=== PATIENT | female | born 1960 | race Caucasian/White ===

== ENCOUNTER → 2019-11-27 | Emergency (ER) | payer MEDICAID ==
[~2019-11-27] VITALS: Ht 170.2 cm; Wt 79.4 kg
[2019-11-27 18:15] VITALS: BP 114/78
== END | disposition home or self-care (01) ==
LOC: ER 17:37
DX: L03.116 Cellulitis of left lower limb (principal); J44.9 Chronic obstructive pulmonary disease, unspecified; I10 Essential (primary) hypertension; E78.5 Hyperlipidemia, unspecified; F17.210 Nicotine dependence, cigarettes, uncomplicated
CPT/HCPCS: 36415; 85379; 93971

== ENCOUNTER 2020-05-22 16:38 | Emergency (ER) | payer MEDICAID ==
[~2020-05-22] VITALS: Ht 167.6 cm; Wt 71.7 kg
[2020-05-22] MEDS ORDERED: HYDROcodone-ACET 10/325MG TAB PO ONE (17:45)
[2020-05-22 20:28] LABS: Basophils # (auto) 0 10 ^3/uL (0-0.2); Basophils % (auto) 0.4 % (0.0-2.0); Eosinophils # (auto) 0.2 10 ^3/uL (0-0.8); Eosinophils % (auto) 2.1 % (0.0-7.0); Hematocrit 38.7 % (36.0-46.0); Hemoglobin 12.3 g/dL (12.2-16.2); Lymphocytes # (auto) 2.7 10 ^3/uL (0.4-5.4); Mean Corpuscular Hemoglobin 26.6 pg (28.0-32.0); Mean Corpuscular Hgb Conc. 31.7 g/dL (32.0-36.0); Mean Corpuscular Volume 83.8 fL (80.0-100.0); Monocytes # (auto) 0.8 10 ^3/uL (0-1.3); Monocytes % (auto) 7.7 % (0.0-12.0); Neutrophils # (auto) 7.1 10 ^3/uL (1.6-8.6); Neutrophils % (auto) 64.8 % (37.0-80.0); Nucleated Red Blood Cells % 0.1 %; Platelet Count (auto) 368 10^3/uL (140-450); Red Blood Cells 4.62 10^6/uL (4.0-5.20); Red Cell Distribution Width 15.9 % (11.8-14.3); White Blood Cell 10.9 10^3/uL (4.4-10.8)
[2020-05-22 20:43] LABS: Albumin 3.1 g/dL (3.4-5.0); Calcium 9.1 mg/dL (8.5-10.1); INR 0.96 (0.9-1.15); Potassium 4.2 mmol/L (3.5-5.1)
[2020-05-22 20:47] LABS: BUN/Creatinine Ratio 14.2; Bilirubin, Total 0.2 mg/dL (0.2-1.0); Total Protein 7.6 g/dL (6.4-8.2)
[2020-05-22] MEDS ORDERED: cefTRIAXone SOD 1,000 MG VL IM ONE (22:00)
[2020-05-22] MEDS ORDERED: LIDOCAINE 1% HCL (LOCAL ANESTH.) INJ 20ML MDV ONE (22:16)
[2020-05-22 22:21] VITALS: BP 132/78
== END 2020-05-22 22:39 | disposition home or self-care (01) ==
LOC: ER 16:38
DX: L03.116 Cellulitis of left lower limb (principal); L03.113 Cellulitis of right upper limb; F12.10 Cannabis abuse, uncomplicated; N18.6 End stage renal disease; K21.9 Gastro-esophageal reflux disease without esophagitis; E78.5 Hyperlipidemia, unspecified; F17.210 Nicotine dependence, cigarettes, uncomplicated
CPT/HCPCS: 36415; 73200; 80053; 83605; 83880; 84443; 84484; 85025; 85610; 87040; 93971; 96372; 99285; J0696; J2001

== ENCOUNTER 2021-05-01 06:41 | Inpatient (IN) | payer MEDICAID ==
[~2021-05-01] VITALS: Ht 165.1 cm; Wt 80.0 kg
[2021-05-01] MEDS ORDERED: SODIUM CHLORIDE 0.9% 1,000 ML IV ONE (07:00)
[2021-05-01 07:27] LABS: Eosinophils # (auto) 0 10 ^3/uL (0-0.8); Monocytes # (auto) 0.3 10 ^3/uL (0-1.3)
[2021-05-01] MEDS ORDERED: LABETALOL HCL 5 MG/ML 4ML SYRINGE IV ONE (07:30)
[2021-05-01 07:31] LABS: Basophils # (auto) 0.1 10 ^3/uL (0-0.2); Basophils % (auto) 0.6 % (0.0-2.0); Hematocrit 40.6 % (36.0-46.0); Hemoglobin 13.2 g/dL (12.2-16.2); Lymphocytes # (auto) 0.8 10 ^3/uL (0.4-5.4); Lymphocytes % (auto) 7.4 % (10.0-50.0); Mean Corpuscular Hemoglobin 25.9 pg (28.0-32.0); Mean Corpuscular Hgb Conc. 32.5 g/dL (32.0-36.0); Mean Corpuscular Volume 79.6 fL (80.0-100.0); Monocytes % (auto) 3.2 % (0.0-12.0); Neutrophils # (auto) 9.1 10 ^3/uL (1.6-8.6); Neutrophils % (auto) 88.8 % (37.0-80.0); Red Cell Distribution Width 15.9 % (11.8-14.3); White Blood Cell 10.2 10^3/uL (4.4-10.8)
[2021-05-01 07:36] LABS: Chloride 106 mmol/L (98-107); Potassium 3.3 mmol/L (3.5-5.1); Sodium 140 mmol/L (136-145)
[2021-05-01 07:47] LABS: Albumin 3.7 g/dL (3.4-5.0); Anion Gap 11 (5-15); Aspartate Aminotransferase 31 U/L (15-37); Blood Urea Nitrogen 14 mg/dL (7-18); Calcium 9.6 mg/dL (8.5-10.1); Carbon Dioxide 23 mmol/L (21-32); Glucose 143 mg/dL (74-106)
[2021-05-01 08:16] LABS: Alanine Aminotransferase 38 U/L (13-56); Alkaline Phosphatase 148 U/L (45-117); BUN/Creatinine Ratio 15.4; Bilirubin, Total 0.6 mg/dL (0.2-1.0); GFR African American 81 mL/min; GFR Non-African American 67 mL/min; Total Protein 8.4 g/dL (6.4-8.2)
[2021-05-01 08:35] LABS: Urine Bacteria NONE SEEN /hpf (None Seen); Urine Blood Negative /uL (Negative); Urine Specific Gravity 1.014 (1.001-1.035); Urine WBC <1 /hpf (0 - 5)
[2021-05-01] MEDS ORDERED: hydrALAZINE HCL 20 MG/ML VL IV PRN (09:15)
[2021-05-01] MEDS ORDERED: MORPHINE SULFATE INJECTION 2 MG/ML SYRG IV PRN ×3 (09:15→13:30)
[2021-05-01] MEDS ORDERED: NITROGLYCERIN 0.4 MG SL TAB SL PRN ×2 (09:15→13:30)
[2021-05-01] MEDS ORDERED: LACTATED RINGER'S 1,000 ML IV ONE (09:30)
[2021-05-01] MEDS ORDERED: ONDANSETRON HCL 4 MG/2 ML VIAL IV ONE (10:30)
[2021-05-01] MEDS ORDERED: MORPHINE SULFATE INJECTION 2 MG/ML SYRG IV ONE (10:30)
[2021-05-01] MEDS: LORazepam 2MG/ML-1ML VIAL IV ONE ×2 (10:51→11:56)
[2021-05-01] MEDS ORDERED: POTASSIUM CHL 20 Meq TABLET PO ONE (13:15)
[2021-05-01] MEDS ORDERED: CLINDAMYCIN 600MG IV 50 ML IV ONE (13:30)
[2021-05-01] MEDS ORDERED: cefTRIAXone 1GM/50ML D5W 50 ML IV ONE (13:30)
[2021-05-01] MEDS ORDERED: ENOXAPARIN SOD 40 MG/0.4 ML SYRINGE SC ONE (13:30)
[2021-05-01] MEDS ORDERED: LORazepam 0.5 MG TAB PO PRN (13:30)
[2021-05-01] MEDS ORDERED: ALUM & MAG HYDROX-SIMETH LIQ(MAALOX) 30 ML PO PRN (13:30)
[2021-05-01] MEDS ORDERED: ONDANSETRON HCL 4 MG/2 ML VIAL IV PRN (13:30)
[2021-05-01] MEDS ORDERED: DOCUSATE SOD 100 MG CAP PO PRN (13:30)
[2021-05-01] MEDS ORDERED: CALCIUM W/VIT D (600MG/400IU) TAB PO ONE (13:30)
[2021-05-01] MEDS ORDERED: LORazepam 2MG/ML-1ML VIAL IV PRN (13:30)
[2021-05-01] MEDS ORDERED: HYDROcodone-ACET 5/325MG TAB PO PRN (13:30)
[2021-05-01] MEDS ORDERED: ACETAMINOPHEN 325 MG TAB PO PRN (13:30)
[2021-05-01] MEDS ORDERED: NIFEdipine ER 30 MG TAB PO ONE (13:30)
[2021-05-01] MEDS ORDERED: BENAZEPRIL HCL 10 MG TAB PO ONE (13:30)
[2021-05-01] MEDS ORDERED: PERCOT PO (13:47)
[2021-05-01] MEDS ORDERED: BACL10TA PO (13:47)
[2021-05-01] MEDS ORDERED: BUPR200T2 PO (13:47)
[2021-05-01] MEDS ORDERED: ATOR20TA50 PO (13:47)
[2021-05-01] MEDS ORDERED: GABA300C10 PO (13:47)
[2021-05-01] MEDS ORDERED: HYDR-4902 PO (13:47)
[2021-05-01 14:01] LABS: Alcohol, Urine < 3.0 mg/dL (0-10); Amphetamine Screen, Urine NEGATIVE (NEGATIVE); Benzodiazephine Screen, Urine NEGATIVE (NEGATIVE); Cannabinoid Screen, Urine POSITIVE (NEGATIVE); Opiate Scree,Urine NEGATIVE (NEGATIVE)
[2021-05-01 14:09] LABS: Barbiturate Scree,Urine NEGATIVE (NEGATIVE); Cocaine Screen, Urine NEGATIVE (NEGATIVE); Phencyclidine Screen, Urine NEGATIVE (NEGATIVE)
[2021-05-01 14:46] LABS: INR 1.05 (0.9-1.15); Partial Thromboplastin Time 28.3 sec (23.6-33.0)
[2021-05-01] MEDS: SODIUM CHLOR 0.9% PF (SALINE LOCK) 10ML VIAL/SYR IV SCH ×2 (14:57→21:12)
[2021-05-01 15:31] LABS: Magnesium 2.1 mg/dL (1.6-2.6); Phosphorus 3.8 mg/dL (2.5-4.90)
[2021-05-01] MEDS: CALCIUM W/VIT D (600MG/400IU) TAB PO SCH (16:19)
[2021-05-01] MEDS: CLINDAMYCIN 600MG IV 50 ML IV SCH (21:12)
[2021-05-01] MEDS: FAMOTIDINE (10MG/ML) 2ML VL IV SCH (21:16)
[2021-05-01 22:00] VITALS: BP 144/86
[2021-05-01] MEDS ORDERED: ATORVASTATIN 20 MG TAB PO SCH (22:00)
[2021-05-02 05:11] VITALS: BP 132/89
[2021-05-02] MEDS: CLINDAMYCIN 600MG IV 50 ML IV SCH ×2 (05:17→14:00)
[2021-05-02] MEDS: SODIUM CHLOR 0.9% PF (SALINE LOCK) 10ML VIAL/SYR IV SCH ×2 (05:17→14:00)
[2021-05-02] MEDS: CALCIUM W/VIT D (600MG/400IU) TAB PO SCH (08:00)
[2021-05-02 09:00] VITALS: BP 129/74
[2021-05-02] MEDS ORDERED: cefTRIAXone 1GM/50ML D5W 50 ML IV SCH (09:00)
[2021-05-02] MEDS ORDERED: ENOXAPARIN SOD 40 MG/0.4 ML SYRINGE SC SCH (10:00)
[2021-05-02] MEDS ORDERED: POTASSIUM CHL 20 Meq TABLET PO SCH ×2 (10:00)
[2021-05-02] MEDS ORDERED: NIFEdipine ER 30 MG TAB PO SCH (10:00)
[2021-05-02] MEDS ORDERED: DULoxetine HCL 30 MG CAP PO SCH (10:00)
[2021-05-02] MEDS ORDERED: BENAZEPRIL HCL 10 MG TAB PO SCH (10:00)
[2021-05-02] MEDS ORDERED: ASPirin 81 mg TAB PO SCH (10:00)
[2021-05-02] MEDS: FAMOTIDINE (10MG/ML) 2ML VL IV SCH (10:07)
[2021-05-02 12:52] VITALS: BP 124/67
[2021-05-02] MEDS ORDERED: POTASSIUM CHL 20 Meq TABLET PO ONE (13:45)
[2021-05-02] MEDS ORDERED: DOCU100C10 PO (14:13)
[2021-05-02] MEDS ORDERED: ATOR20TA50 PO (14:13)
[2021-05-02] MEDS ORDERED: METR500T14 PO (14:13)
[2021-05-02] MEDS ORDERED: CALC600T80 PO (14:13)
[2021-05-02] MEDS ORDERED: CEPH500T PO (14:13)
[2021-05-02] MEDS ORDERED: POTA-220 PO (14:13)
[2021-05-02] MEDS ORDERED: BUPR200T2 PO (14:13)
[2021-05-02] MEDS ORDERED: AML5T PO (14:13)
[2021-05-02] MEDS ORDERED: METO25TA93 PO (14:13)
[2021-05-02] MEDS ORDERED: ASPI81CH59 PO (14:13)
[2021-05-02] MEDS ORDERED: FAMO-12 PO (14:13)
[2021-05-02] MEDS ORDERED: BENA10TA15 PO (14:13)
[2021-05-02] MEDS ORDERED: BACL20TA PO (14:13)
== END 2021-05-02 16:15 | disposition home or self-care (01) | DRG 812 ==
LOC: EDBD 06:41 → ER 06:41 → TELE 09:15 → TELE-WESTW 13:04
PROVIDERS: ADMIT Hospitalist; ATTEND Hospitalist
DX: T40.2X1A Poisoning by other opioids, accidental (unintentional), initial encounter (principal); J69.0 Pneumonitis due to inhalation of food and vomit; G92.9 Unspecified toxic encephalopathy; I67.4 Hypertensive encephalopathy; S02.80XA Fracture of other specified skull and facial bones, unspecified side, initial encounter for closed fracture; E78.5 Hyperlipidemia, unspecified; I12.0 Hypertensive chronic kidney disease with stage 5 chronic kidney disease or end stage renal disease; E87.6 Hypokalemia; F11.20 Opioid dependence, uncomplicated; F17.210 Nicotine dependence, cigarettes, uncomplicated; F32.9 Major depressive disorder, single episode, unspecified; F41.9 Anxiety disorder, unspecified; G89.4 Chronic pain syndrome; I16.1 Hypertensive emergency; M19.90 Unspecified osteoarthritis, unspecified site; M50.122 Cervical disc disorder at C5-C6 level with radiculopathy; N18.6 End stage renal disease; Y92.89 Other specified places as the place of occurrence of the external cause; W18.39XA Other fall on same level, initial encounter; Y93.89 Activity, other specified; Y99.8 Other external cause status; Z20.822 Contact with and (suspected) exposure to COVID-19
CPT/HCPCS: 36415; 51702; 70450; 70486; 71045; 72125; 74176; 80053; 80307; 81001; 83036; 83735; 84100; 84443; 84484; 85025; 85610; 85730; 87040; 87086; 87426; 93005; 93306; 96361; 96374; 96375; 99291; G0378; J0696; J2405; J3490

== ENCOUNTER 2021-09-05 09:58 | Inpatient (IN) | payer MEDICAID ==
[~2021-09-05] VITALS: Ht 170.2 cm; Wt 69.9 kg
[~2021-09-05 09:58] MED LIST: AML5T PO; ASPI81CH59 PO; ATOR20TA50 PO; BACL20TA PO; BENA10TA15 PO; BUPR200T2 PO; CALC600T80 PO; CEPH500T PO; DOCU100C10 PO; FAMO-12 PO; METO25TA93 PO; METR500T14 PO; POTA-220 PO
[2021-09-05] MEDS ORDERED: ONDANSETRON HCL 4 MG/2 ML VIAL IV ONE ×2 (11:00→19:15)
[2021-09-05] MEDS ORDERED: SODIUM CHLORIDE 0.9% 1,000 ML IV ONE (11:15)
[2021-09-05 11:23] LABS: Eosinophils # (auto) 0 10 ^3/uL (0-0.8); Eosinophils % (auto) 0.3 % (0.0-7.0); Lymphocytes # (auto) 2.3 10 ^3/uL (0.4-5.4); Monocytes # (auto) 0.5 10 ^3/uL (0-1.3); Neutrophils # (auto) 5.4 10 ^3/uL (1.6-8.6); Nucleated Red Blood Cells % 0.1 %; White Blood Cell 8.3 10^3/uL (4.4-10.8)
[2021-09-05 11:26] LABS: Basophils # (auto) 0.1 10 ^3/uL (0-0.2); Basophils % (auto) 0.7 % (0.0-2.0); Hematocrit 34.8 % (36.0-46.0); Hemoglobin 11.2 g/dL (12.2-16.2); Lymphocytes % (auto) 27.9 % (10.0-50.0); Mean Corpuscular Hemoglobin 26.8 pg (28.0-32.0); Mean Corpuscular Hgb Conc. 32.3 g/dL (32.0-36.0); Monocytes % (auto) 6.3 % (0.0-12.0); Neutrophils % (auto) 64.8 % (37.0-80.0); Red Cell Distribution Width 15.9 % (11.8-14.3)
[2021-09-05] MEDS ORDERED: MORPHINE SULFATE INJECTION 2 MG/ML SYRG IV ONE ×2 (12:30→19:15)
[2021-09-05 13:24] LABS: Potassium 4.5 mmol/L (3.5-5.1); Sodium 142 mmol/L (136-145)
[2021-09-05 13:25] LABS: Alanine Aminotransferase 18 U/L (13-56); Albumin 3.8 g/dL (3.4-5.0); Alkaline Phosphatase 116 U/L (45-117); Anion Gap 5 (5-15); Aspartate Aminotransferase 21 U/L (15-37); BUN/Creatinine Ratio 15.5; Bilirubin, Total 0.2 mg/dL (0.2-1.0); Blood Urea Nitrogen 22 mg/dL (7-18); Calcium 9.5 mg/dL (8.5-10.1); Carbon Dioxide 22 mmol/L (21-32); Chloride 115 mmol/L (98-107); GFR African American 48 mL/min; GFR Non-African American 40 mL/min; Glucose 93 mg/dL (74-106); Total Protein 7.4 g/dL (6.4-8.2)
[2021-09-05] MEDS ORDERED: LORazepam 2MG/ML-1ML VIAL IV ONE (14:15)
[2021-09-05 19:23] LABS: Urine Bacteria FEW /hpf (None Seen); Urine Blood Negative /uL (Negative); Urine WBC 4 /hpf (0 - 5)
[2021-09-06] MEDS ORDERED: cefTRIAXone 1GM/50ML D5W 50 ML IV ONE (02:15)
[2021-09-06 03:59] LABS: Albumin 3.5 g/dL (3.4-5.0); BUN/Creatinine Ratio 15.6; Calcium 8.9 mg/dL (8.5-10.1)
[2021-09-06 04:02] LABS: Bilirubin, Total 0.3 mg/dL (0.2-1.0); Total Protein 6.3 g/dL (6.4-8.2)
[2021-09-06] MEDS ORDERED: NITROGLYCERIN 0.4 MG SL TAB SL PRN (06:45)
[2021-09-06] MEDS ORDERED: MORPHINE SULFATE INJECTION 2 MG/ML SYRG IV PRN ×2 (06:45→14:45)
[2021-09-06] MEDS ORDERED: cefTRIAXone 1GM/50ML D5W 50 ML IV SCH (09:00)
[2021-09-06] MEDS: SODIUM CHLORIDE 0.9% 1,000 ML IV SCH ×2 (09:51→23:25)
[2021-09-06] MEDS ORDERED: ENOXAPARIN SOD 40 MG/0.4 ML SYRINGE SC SCH (10:00)
[2021-09-06] MEDS ORDERED: HYDROcodone-ACET 5/325MG TAB PO PRN (14:45)
[2021-09-06 22:30] VITALS: BP 164/101
[2021-09-07] MEDS: ONDANSETRON HCL 4 MG/2 ML VIAL IV PRN ×2 (01:09→06:57)
[2021-09-07 05:00] VITALS: BP 156/84
[2021-09-07 06:01] LABS: Basophils # (auto) 0.1 10 ^3/uL (0-0.2); Basophils % (auto) 0.7 % (0.0-2.0); Eosinophils # (auto) 0.2 10 ^3/uL (0-0.8); Eosinophils % (auto) 2.1 % (0.0-7.0); Hematocrit 35.8 % (36.0-46.0); Hemoglobin 11.6 g/dL (12.2-16.2); Lymphocytes # (auto) 2.8 10 ^3/uL (0.4-5.4); Mean Corpuscular Hemoglobin 27.1 pg (28.0-32.0); Mean Corpuscular Hgb Conc. 32.5 g/dL (32.0-36.0); Mean Corpuscular Volume 83.2 fL (80.0-100.0); Monocytes # (auto) 0.6 10 ^3/uL (0-1.3); Neutrophils # (auto) 4.3 10 ^3/uL (1.6-8.6); Neutrophils % (auto) 54.2 % (37.0-80.0); Nucleated Red Blood Cells % 0.1 %; Red Cell Distribution Width 16.5 % (11.8-14.3); White Blood Cell 7.9 10^3/uL (4.4-10.8)
[2021-09-07 06:28] LABS: BUN/Creatinine Ratio 20.7; Calcium 8.7 mg/dL (8.5-10.1); Potassium 3.9 mmol/L (3.5-5.1)
== END 2021-09-07 10:30 | disposition left against medical advice (07) | DRG 463 ==
LOC: ER 09:58 → EDBD 09:58 → OVERFLOW 09-06 06:34 → WEST WING 09-06 20:00
PROVIDERS: ADMIT Hospitalist; ATTEND Hospitalist
DX: N13.6 Pyonephrosis (principal); N17.0 Acute kidney failure with tubular necrosis; F17.210 Nicotine dependence, cigarettes, uncomplicated; F41.9 Anxiety disorder, unspecified; I12.0 Hypertensive chronic kidney disease with stage 5 chronic kidney disease or end stage renal disease; N18.6 End stage renal disease; N32.0 Bladder-neck obstruction; N32.89 Other specified disorders of bladder; Z98.1 Arthrodesis status; K21.9 Gastro-esophageal reflux disease without esophagitis; F32.A Depression, unspecified; Z53.29 Procedure and treatment not carried out because of patient's decision for other reasons
CPT/HCPCS: 36415; 74176; 76856; 80048; 80053; 81001; 83605; 83690; 84484; 85025; 87086; 87426; 93005; 96361; 96374; 96375; 96376; G0378; J0696; J2405

== ENCOUNTER 2021-09-16 04:18 | Emergency (ER) | payer MEDICAID ==
[~2021-09-16] VITALS: Ht 170.2 cm; Wt 74.8 kg
[2021-09-16 07:00] LABS: Basophils # (auto) 0 10 ^3/uL (0-0.2); Basophils % (auto) 0.6 % (0.0-2.0); Eosinophils # (auto) 0.2 10 ^3/uL (0-0.8); Eosinophils % (auto) 2.1 % (0.0-7.0); Hematocrit 35.3 % (36.0-46.0); Hemoglobin 11.3 g/dL (12.2-16.2); Lymphocytes # (auto) 3.3 10 ^3/uL (0.4-5.4); Lymphocytes % (auto) 42.9 % (10.0-50.0); Mean Corpuscular Hemoglobin 26.8 pg (28.0-32.0); Mean Corpuscular Volume 83.8 fL (80.0-100.0); Monocytes # (auto) 0.5 10 ^3/uL (0-1.3); Monocytes % (auto) 6.7 % (0.0-12.0); Neutrophils # (auto) 3.7 10 ^3/uL (1.6-8.6); Neutrophils % (auto) 47.7 % (37.0-80.0); Nucleated Red Blood Cells % 0.2 %; Red Blood Cells 4.21 10^6/uL (4.0-5.20); Red Cell Distribution Width 17.6 % (11.8-14.3); White Blood Cell 7.8 10^3/uL (4.4-10.8)
[2021-09-16 07:05] LABS: Albumin 3.8 g/dL (3.4-5.0); Potassium 5.1 mmol/L (3.5-5.1)
[2021-09-16 07:09] LABS: Bilirubin, Total 0.5 mg/dL (0.2-1.0); Total Protein 7.5 g/dL (6.4-8.2)
[2021-09-16 07:11] LABS: BUN/Creatinine Ratio 18.2
[2021-09-16] MEDS ORDERED: LORazepam 2MG/ML-1ML VIAL IV ONE (07:30)
[2021-09-16] MEDS ORDERED: MORPHINE SULFATE INJECTION 2 MG/ML SYRG IV ONE (07:30)
[2021-09-16] MEDS ORDERED: SODIUM CHLORIDE 0.9% 1,000 ML IV ONE (07:30)
[2021-09-16] MEDS ORDERED: MORPHINE SULFATE INJECTION 2 MG/ML SYRG ONE (11:14)
[2021-09-16 12:01] LABS: Urine Bacteria FEW /hpf (None Seen); Urine Blood Negative /uL (Negative); Urine Hyaline Cast FEW /lpf (0 - 2); Urine Mucus FEW (None Seen); Urine Specific Gravity 1.021 (1.001-1.035); Urine WBC 54 /hpf (0 - 5)
[2021-09-16 12:08] LABS: Amphetamine Screen, Urine NEGATIVE (NEGATIVE); Barbiturate Scree,Urine NEGATIVE (NEGATIVE); Benzodiazephine Screen, Urine NEGATIVE (NEGATIVE); Cannabinoid Screen, Urine POSITIVE (NEGATIVE); Cocaine Screen, Urine NEGATIVE (NEGATIVE); Opiate Scree,Urine NEGATIVE (NEGATIVE); Phencyclidine Screen, Urine NEGATIVE (NEGATIVE)
[2021-09-16] MEDS ORDERED: cefTRIAXone 1GM/50ML D5W 50 ML IV ONE ×2 (12:45→13:07)
[2021-09-16 13:58] VITALS: BP 162/69
== END 2021-09-16 14:01 | disposition home or self-care (01) ==
LOC: ER 04:18 → EDBD 04:18 → ER 13:59
DX: M79.10 Myalgia, unspecified site (principal); N39.0 Urinary tract infection, site not specified; E87.5 Hyperkalemia; F11.23 Opioid dependence with withdrawal; N18.6 End stage renal disease; K21.9 Gastro-esophageal reflux disease without esophagitis; E78.5 Hyperlipidemia, unspecified; F17.210 Nicotine dependence, cigarettes, uncomplicated; Z79.82 Long term (current) use of aspirin; Z79.899 Other long term (current) drug therapy
CPT/HCPCS: 36415; 71045; 80053; 80307; 81001; 83690; 83735; 84484; 85025; 93005; 96361; 96365; 96375; 99285; J0696; J2270; J7030

== ENCOUNTER 2021-09-23 19:46 | Emergency (ER) | payer MEDICAID ==
[~2021-09-23] VITALS: Ht 160 cm; Wt 65.8 kg
[2021-09-23 21:09] LABS: Basophils # (auto) 0 10 ^3/uL (0-0.2); Basophils % (auto) 0.4 % (0.0-2.0); Eosinophils # (auto) 0.1 10 ^3/uL (0-0.8); Eosinophils % (auto) 1.6 % (0.0-7.0); Hematocrit 33.1 % (36.0-46.0); Hemoglobin 10.8 g/dL (12.2-16.2); Lymphocytes # (auto) 2.9 10 ^3/uL (0.4-5.4); Lymphocytes % (auto) 32.6 % (10.0-50.0); Mean Corpuscular Hemoglobin 27.3 pg (28.0-32.0); Mean Corpuscular Hgb Conc. 32.6 g/dL (32.0-36.0); Mean Corpuscular Volume 83.7 fL (80.0-100.0); Monocytes # (auto) 0.5 10 ^3/uL (0-1.3); Monocytes % (auto) 5.5 % (0.0-12.0); Neutrophils # (auto) 5.4 10 ^3/uL (1.6-8.6); Neutrophils % (auto) 59.9 % (37.0-80.0); Nucleated Red Blood Cells % 0.1 %; Red Blood Cells 3.96 10^6/uL (4.0-5.20)
[2021-09-23 21:23] LABS: Albumin 3.7 g/dL (3.4-5.0); Magnesium 2.1 mg/dL (1.6-2.6); Potassium 3.4 mmol/L (3.5-5.1)
[2021-09-23 21:25] LABS: INR 1.03 (0.9-1.15); Partial Thromboplastin Time 24.8 sec (23.6-33.0)
[2021-09-23 21:32] LABS: BUN/Creatinine Ratio 18.1; Bilirubin, Total 0.4 mg/dL (0.2-1.0); Total Protein 6.7 g/dL (6.4-8.2)
[2021-09-24 00:28] VITALS: BP 158/85
== END 2021-09-24 00:26 | disposition home or self-care (01) ==
LOC: EDBD 19:46 → ER 19:50
DX: F11.23 Opioid dependence with withdrawal (principal); F17.210 Nicotine dependence, cigarettes, uncomplicated; F12.10 Cannabis abuse, uncomplicated; K21.9 Gastro-esophageal reflux disease without esophagitis; E78.5 Hyperlipidemia, unspecified
CPT/HCPCS: 36415; 80053; 83735; 83880; 84484; 85025; 85610; 85730; 93005

== ENCOUNTER 2022-06-25 07:49 | Emergency (ER) | payer MEDICAID ==
[~2022-06-25] VITALS: Ht 162.6 cm; Wt 68.0 kg
[2022-06-25 07:57] VITALS: BP 126/78
== END 2022-06-25 08:39 | disposition left against medical advice (07) ==
LOC: ER 07:49 → EDBD 07:49 → ER 08:39
DX: G89.29 Other chronic pain (principal); M79.605 Pain in left leg; Z53.21 Procedure and treatment not carried out due to patient leaving prior to being seen by health care provider

== ENCOUNTER 2022-06-30 16:00 | Emergency (ER) | payer MEDICAID ==
[~2022-06-30] VITALS: Ht 175.3 cm; Wt 77.3 kg
[2022-06-30 18:23] LABS: Basophils # (auto) 0 10 ^3/uL (0-0.2); Basophils % (auto) 0.5 % (0.0-2.0); Eosinophils # (auto) 0 10 ^3/uL (0-0.8); Eosinophils % (auto) 0.1 % (0.0-7.0); Hematocrit 42.6 % (36.0-46.0); Hemoglobin 13.5 g/dL (12.2-16.2); Lymphocytes # (auto) 0.9 10 ^3/uL (0.4-5.4); Mean Corpuscular Hemoglobin 27.1 pg (28.0-32.0); Mean Corpuscular Hgb Conc. 31.7 g/dL (32.0-36.0); Mean Corpuscular Volume 85.5 fL (80.0-100.0); Monocytes # (auto) 0.1 10 ^3/uL (0-1.3); Monocytes % (auto) 1.5 % (0.0-12.0); Neutrophils # (auto) 7.3 10 ^3/uL (1.6-8.6); Neutrophils % (auto) 86.9 % (37.0-80.0); Nucleated Red Blood Cells % 0.1 %; Red Blood Cells 4.98 10^6/uL (4.0-5.20); Red Cell Distribution Width 15.2 % (11.8-14.3); White Blood Cell 8.4 10^3/uL (4.4-10.8)
[2022-06-30 18:53] LABS: BUN/Creatinine Ratio 19.4; Bilirubin, Total 0.4 mg/dL (0.2-1.0); Calcium 9.9 mg/dL (8.5-10.1); Potassium 4.5 mmol/L (3.5-5.1); Total Protein 7.5 g/dL (6.4-8.2)
[2022-06-30] MEDS ORDERED: HYDROcodone-ACET 5/325MG TAB PO ONE (20:00)
[2022-06-30] MEDS ORDERED: ONDANSETRON ODT 4 MG TAB PO ONE (20:30)
[2022-06-30 21:30] VITALS: BP 115/85
[2022-06-30] MEDS ORDERED: diphenhdrAMINE HCL 25 MG CAP PO ONE (21:30)
== END 2022-06-30 22:31 | disposition home or self-care (01) ==
LOC: ER 16:00 → EDBD 16:00 → ER 22:31
DX: R11.2 Nausea with vomiting, unspecified (principal); G89.29 Other chronic pain; M79.605 Pain in left leg; M79.604 Pain in right leg; N18.6 End stage renal disease; K21.9 Gastro-esophageal reflux disease without esophagitis; E78.5 Hyperlipidemia, unspecified; F17.210 Nicotine dependence, cigarettes, uncomplicated; Z98.2 Presence of cerebrospinal fluid drainage device; Z79.899 Other long term (current) drug therapy
CPT/HCPCS: 36415; 80053; 85025; 99284; Q0162

== ENCOUNTER 2022-07-15 16:14 | Inpatient (IN) | payer MEDICAID ==
[~2022-07-15] VITALS: Ht 162.6 cm; Wt 65.0 kg
[2022-07-15] MEDS ORDERED: SODIUM CHLORIDE 0.9% 500 ML IV ONE (16:30)
[2022-07-15 16:53] LABS: Basophils # (auto) 0 10 ^3/uL (0-0.2); Basophils % (auto) 0.2 % (0.0-2.0); Eosinophils # (auto) 0 10 ^3/uL (0-0.8); Hematocrit 41.3 % (36.0-46.0); Hemoglobin 13.3 g/dL (12.2-16.2); Lymphocytes % (auto) 4.1 % (10.0-50.0); Mean Corpuscular Hemoglobin 27.7 pg (28.0-32.0); Mean Corpuscular Hgb Conc. 32.2 g/dL (32.0-36.0); Mean Corpuscular Volume 85.9 fL (80.0-100.0); Monocytes # (auto) 1.2 10 ^3/uL (0-1.3); Monocytes % (auto) 4.7 % (0.0-12.0); Neutrophils # (auto) 22.6 10 ^3/uL (1.6-8.6); Nucleated Red Blood Cells % 0.1 %; Red Cell Distribution Width 15.5 % (11.8-14.3); White Blood Cell 24.8 10^3/uL (4.4-10.8)
[2022-07-15 17:36] LABS: Alanine Aminotransferase 144 U/L (13-56); Albumin 3.3 g/dL (3.4-5.0); Anion Gap 24 (5-15); Aspartate Aminotransferase 410 U/L (15-37); BUN/Creatinine Ratio 21.4; Blood Urea Nitrogen 72 mg/dL (7-18); Calcium 8.8 mg/dL (8.5-10.1); Carbon Dioxide 11 mmol/L (21-32); Chloride 103 mmol/L (98-107); GFR African American 18 mL/min; GFR Non-African American 15 mL/min; Glucose 103 mg/dL (74-106); Potassium 4.7 mmol/L (3.5-5.1); Sodium 138 mmol/L (136-145)
[2022-07-15 17:38] LABS: INR 1.13 (0.9-1.15); Partial Thromboplastin Time 29.4 sec (24.6-33.4)
[2022-07-15 17:39] LABS: Alkaline Phosphatase 168 U/L (45-117); Bilirubin, Total 1.1 mg/dL (0.2-1.0); Total Protein 6.6 g/dL (6.4-8.2)
[2022-07-15] MEDS ORDERED: SODIUM BICARBONATE 8.4 % INJ 50ML VIAL IV ONE (21:15)
[2022-07-15] MEDS ORDERED: SODIUM CHLORIDE 0.9% 1,000 ML IV ONE (21:15)
[2022-07-15] MEDS ORDERED: SODIUM BICARBONATE 50ML VIAL 50 ML in SOD CHL 0.45% 1,000 ML IV ONE (21:15)
[2022-07-15 21:57] LABS: Acetaminophen 2.7 ug/mL (10-30); Salicylate 2.9 mg/dL (2.8-20.0)
[2022-07-15] MEDS ORDERED: PIPERACILLIN-TAZOB 3.375GM 100 ML IV ONE (22:15)
[2022-07-15 23:15] LABS: Lactic Acid w/Reflex 12.8 mmol/L (0.4-2.0)
[2022-07-15] MEDS ORDERED: DEXTROSE 50% SYRINGE 50 ML IV ONE (23:39)
[2022-07-15] MEDS ORDERED: DEXTROSE (50%) 50ML SYRG IV ONE (23:45)
[2022-07-16 00:04] LABS: Urine Bacteria NONE SEEN /hpf (None Seen); Urine Blood 2+ /uL (Negative); Urine Specific Gravity 1.021 (1.001-1.035); Urine WBC 1 /hpf (0 - 5)
[2022-07-16 00:11] LABS: Alcohol, Urine < 3.0 mg/dL (0-10); Amphetamine Screen, Urine POSITIVE (NEGATIVE); Barbiturate Scree,Urine NEGATIVE (NEGATIVE); Benzodiazephine Screen, Urine NEGATIVE (NEGATIVE); Cannabinoid Screen, Urine POSITIVE (NEGATIVE); Cocaine Screen, Urine NEGATIVE (NEGATIVE); Phencyclidine Screen, Urine NEGATIVE (NEGATIVE)
[2022-07-16 00:26] LABS: Opiate Scree,Urine NEGATIVE (NEGATIVE)
[2022-07-16] MEDS ORDERED: DEXTROSE 50% SYRINGE 50 ML IV ONE (00:39)
[2022-07-16] MEDS ORDERED: DEXTROSE (50%) 50ML SYRG IV ONE ×3 (00:45→07:15)
[2022-07-16] MEDS ORDERED: ONDANSETRON HCL 4 MG/2 ML VIAL IV ONE (01:45)
[2022-07-16] MEDS: DEXTROSE 10% 1,000 ML IV SCH ×3 (01:54→14:05)
[2022-07-16] MEDS ORDERED: SODIUM CHLORIDE 0.9% 500 ML IV ONE ×2 (02:15→02:30)
[2022-07-16] MEDS ORDERED: NOREPINEPHRINE 8 MG/250ML KIT 250 ML IV ONE (02:21)
[2022-07-16] MEDS: NOREPINEPHRINE 8 MG/250ML KIT 250 ML IV SCH ×2 (02:22→08:30)
[2022-07-16] MEDS ORDERED: NALOXONE HCL 1MG/ML 2ML SYRINGE IV ONE (02:30)
[2022-07-16] MEDS ORDERED: ONDANSETRON HCL 4 MG/2 ML VIAL IV PRN (03:30)
[2022-07-16] MEDS ORDERED: VANCOMYCIN PER PHARMACY 0 MG IV SCH (03:30)
[2022-07-16] MEDS ORDERED: NITROGLYCERIN 0.4 MG SL TAB SL PRN (03:30)
[2022-07-16] MEDS ORDERED: MORPHINE SULFATE INJ 2 MG/ml SYRG IV PRN (03:30)
[2022-07-16] MEDS: SODIUM BICARBONATE 50ML VIAL 100 ML in SOD CHL 0.45% 1,000 ML IV SCH ×2 (03:50→11:45)
[2022-07-16] MEDS ORDERED: SODIUM BICARBONATE 8.4 % INJ 50ML VIAL IV ONE ×7 (03:50→14:30)
[2022-07-16] MEDS ORDERED: VANCOMYCIN 1GM/250ML 250 ML IV ONE (04:00)
[2022-07-16] MEDS ORDERED: ALBUTEROL SULF 2.5 MG/0.5ML(0.5%) NEB SOLN NEB ONE ×2 (05:00→07:15)
[2022-07-16] MEDS ORDERED: IPRATROPIUM BROM 0.5 MG/2.5ML INH SOL NEB ONE (05:00)
[2022-07-16 05:24] LABS: Basophils # (auto) 0 10 ^3/uL (0-0.2); Basophils % (auto) 0.2 % (0.0-2.0); Eosinophils # (auto) 0 10 ^3/uL (0-0.8); Eosinophils % (auto) 0.1 % (0.0-7.0); Hemoglobin 12.3 g/dL (12.2-16.2); Lymphocytes # (auto) 0.6 10 ^3/uL (0.4-5.4)
[2022-07-16 05:34] LABS: Albumin 2.5 g/dL (3.4-5.0)
[2022-07-16 05:35] LABS: Hematocrit 40.5 % (36.0-46.0); Lymphocytes % (auto) 5.9 % (10.0-50.0); Mean Corpuscular Hemoglobin 27.2 pg (28.0-32.0); Mean Corpuscular Hgb Conc. 30.3 g/dL (32.0-36.0); Mean Corpuscular Volume 89.5 fL (80.0-100.0); Monocytes # (auto) 0.2 10 ^3/uL (0-1.3); Monocytes % (auto) 1.7 % (0.0-12.0); Neutrophils % (auto) 92.1 % (37.0-80.0); Nucleated Red Blood Cells % 0.1 %; Red Blood Cells 4.52 10^6/uL (4.0-5.20); Red Cell Distribution Width 15.9 % (11.8-14.3); White Blood Cell 9.7 10^3/uL (4.4-10.8)
[2022-07-16 05:39] LABS: Bilirubin, Total 2.1 mg/dL (0.2-1.0); Total Protein 5.3 g/dL (6.4-8.2)
[2022-07-16 05:42] LABS: Potassium 5.7 mmol/L (3.5-5.1)
[2022-07-16] MEDS ORDERED: SODIUM BICARBONATE 8.4% INJ 50ML SYRINGE ONE ×2 (05:45→06:31)
[2022-07-16] MEDS ORDERED: LACTULOSE 10g/15ml SOLN 473ML PR SCH (06:00)
[2022-07-16] MEDS ORDERED: SODIUM ZIRCONIUM CYCL 10 GM PAK PO ONE ×2 (06:15→07:15)
[2022-07-16] MEDS ORDERED: ETOMIDATE (2MG/ML) 20ML VIAL IV ONE ×2 (06:23→07:45)
[2022-07-16] MEDS ORDERED: SUCCINYLCHOLINE CHLORIDE 20 MG/ML 10ML VIAL IV ONE ×2 (06:23→07:45)
[2022-07-16] MEDS ORDERED: MIDAZOLAM DRIP 50 mg/50mL 50 ML IV ONE (06:24)
[2022-07-16] MEDS ORDERED: PANTOPRAZOLE 40mg/50ML NS AE 50 ML IV SCH (06:30)
[2022-07-16] MEDS ORDERED: SODIUM CHLORIDE 0.9% 2,000 ML IV ONE ×2 (06:30→14:30)
[2022-07-16] MEDS ORDERED: CLINDAMYCIN 600MG IV 50 ML IV ONE (06:30)
[2022-07-16] MEDS ORDERED: SODIUM CHLORIDE 0.9% 1,000 ML IV ONE ×2 (07:15)
[2022-07-16] MEDS ORDERED: CALCIUM GLUC 1,000mg/50ml-NS 50 ML IV ONE ×2 (07:15)
[2022-07-16] MEDS ORDERED: SODIUM BICARBONATE 8.4% INJ 50ML SYRINGE IV ONE (07:15)
[2022-07-16] MEDS ORDERED: InsuLIN REG 1unit/0.01ml Soln (100units/ml) IV ONE (07:15)
[2022-07-16] MEDS ORDERED: MIDAZOLAM DRIP 50 mg/50mL 50 ML IV SCH (07:45)
[2022-07-16] MEDS ORDERED: VASOPRESSIN 50 UNITS in D5W 5% 247.5 ML IV SCH (08:30)
[2022-07-16] MEDS ORDERED: fentaNYL Drip 2500mCg/250mlNS 250 ML IV SCH (08:30)
[2022-07-16] MEDS ORDERED: fentaNYL Drip 2500mCg/250mlNS 250 ML IV ONE (08:34)
[2022-07-16 08:45] VITALS: BP 104/52
[2022-07-16] MEDS: PANTOPRAZOLE 40mg/50ML NS AE 50 ML IV SCH ×2 (09:40→12:32)
[2022-07-16] MEDS ORDERED: PANTOPRAZOLE 40 MG/10 ML VIAL INJ IV SCH (10:00)
[2022-07-16] MEDS ORDERED: DOPamine 1600MCG/ML D5W 250 ML IV SCH (10:00)
[2022-07-16] MEDS ORDERED: LACTULOSE 20Gm/30ML SOLN PO SCH (10:00)
[2022-07-16 10:20] VITALS: BP 123/67
[2022-07-16] MEDS: PIPERACILLIN-TAZOB 2.25GM 50 ML IV SCH ×2 (10:43→16:33)
[2022-07-16 11:50] VITALS: BP 104/52
[2022-07-16] MEDS ORDERED: PHENYLEPHRINE IV 250 ML IV ONE (11:55)
[2022-07-16] MEDS ORDERED: PHENYLEPHRINE INJ 80 MG in SODIUM CHL 0.9% 242 ML IV SCH (12:15)
[2022-07-16] MEDS ORDERED: EPINEPHrine HCL 250 ML IV ONE (13:41)
[2022-07-16] MEDS: PHENYLEPHRINE IV 250 ML IV SCH ×2 (14:38→15:48)
[2022-07-16] MEDS ORDERED: EPINEPHrine HCL 250 ML IV SCH (14:45)
[2022-07-16] MEDS ORDERED: SODIUM CHLORIDE 0.9% 1,000 ML IV SCH (16:00)
[2022-07-16] MEDS ORDERED: BUMETANIDE 2.5mg/10ml (0.25 mg/ml) INJ IV ONE (16:00)
[2022-07-16 16:33] VITALS: BP 85/58
[2022-07-16 16:38] VITALS: BP 78/55
[2022-07-17] MEDS ORDERED: EPINEPHrine HCL 1 MG/10 ML SYRG IV ONE (11:48)
[2022-07-17] MEDS ORDERED: SODIUM BICARBONATE 8.4% INJ 50ML SYRINGE IV ONE (11:48)
[2022-07-17] MEDS ORDERED: CALCIUM CHLOR(10%) 100MG/ML 10ML SYRINGE IV ONE (11:48)
[2022-07-19 14:20] LABS: Hepatitis A Ab IgM Negative; Hepatitis B Core IgM Negative
[2022-07-19 14:21] LABS: Hepatitis C Antibody Negative (Negative)
== END 2022-07-16 17:05 | DRG 720 ==
LOC: EDBD 16:14 → ER 16:14 → OVERFLOW 07-16 03:18
PROVIDERS: ADMIT Nurse Practitioner; ATTEND Hospitalist
PROC: 5A1935Z Respiratory Ventilation, Less than 24 Consecutive Hours (ICD-10-PCS; principal; 2022-07-16)
PROC: 5A12012 Performance of Cardiac Output, Single, Manual (ICD-10-PCS; 2022-07-16)
PROC: 0BH17EZ Insertion of Endotracheal Airway into Trachea, Via Natural or Artificial Opening (ICD-10-PCS; 2022-07-16)
PROC: 06HN33Z Insertion of Infusion Device into Left Femoral Vein, Percutaneous Approach (ICD-10-PCS; 2022-07-16)
PROC: 06HM33Z Insertion of Infusion Device into Right Femoral Vein, Percutaneous Approach (ICD-10-PCS; 2022-07-16)
PROC: 30233N1 Transfusion of Nonautologous Red Blood Cells into Peripheral Vein, Percutaneous Approach (ICD-10-PCS; 2022-07-16)
DX: A41.9 Sepsis, unspecified organism (principal); I46.9 Cardiac arrest, cause unspecified; J96.90 Respiratory failure, unspecified, unspecified whether with hypoxia or hypercapnia; K72.00 Acute and subacute hepatic failure without coma; R65.21 Severe sepsis with septic shock; G92.8 Other toxic encephalopathy; E72.20 Disorder of urea cycle metabolism, unspecified; I21.4 Non-ST elevation (NSTEMI) myocardial infarction; N17.9 Acute kidney failure, unspecified; Z66 Do not resuscitate; I12.0 Hypertensive chronic kidney disease with stage 5 chronic kidney disease or end stage renal disease; K92.2 Gastrointestinal hemorrhage, unspecified; N18.6 End stage renal disease; K80.20 Calculus of gallbladder without cholecystitis without obstruction; Z20.822 Contact with and (suspected) exposure to COVID-19; F15.10 Other stimulant abuse, uncomplicated; G89.29 Other chronic pain; F17.210 Nicotine dependence, cigarettes, uncomplicated; E78.5 Hyperlipidemia, unspecified; F32.A Depression, unspecified; F41.9 Anxiety disorder, unspecified; K21.9 Gastro-esophageal reflux disease without esophagitis; M79.604 Pain in right leg; F19.10 Other psychoactive substance abuse, uncomplicated; R74.01 Elevation of levels of liver transaminase levels; I49.9 Cardiac arrhythmia, unspecified; Z82.49 Family history of ischemic heart disease and other diseases of the circulatory system; Z83.3 Family history of diabetes mellitus
CPT/HCPCS: 36415; 36600; 71045; 71250; 73562; 74176; 80053; 80074; 80307; 80320; 80329; 81001; 82140; 82550; 82553; 82805; 82962; 83605; 84132; 84443; 84484; 85025; 85610; 85730; 86850; 86900; 86901; 86920; 87040; 87070; 87077; 87186; 87205; 87426; 93005; 93970; 94002; 94640; 96361; 96365; 96367; 96375; 96376; 99291; C9113; G0378; J0171; J0330; J1815; J2250; J2405; J2543; J3490; J7060